=== PATIENT | male | born 1950 | race Caucasian/White ===

== ENCOUNTER → 2017-08-21 | Outpatient (CLI) | payer MEDICARE ==
[~2017-08-21] MED LIST: ASCO-182 PO; ASPI-1471 PO; CHOL200022 PO; CHOL500025 PO; ENAL20TA99 PO; HYDR-2966 PO; HYDR-385 PO; METH-543 PO; PNEU0.5D3 IM; ROSU20TA13 PO
[2017-08-21 09:25] LABS: PLATELET COUNT, AUTOMATED 185 K/uL (150-450)
== END ==
LOC: LAB 09:02
PROVIDERS: ATTEND Emergency Medicine
DX: Z12.5 Encounter for screening for malignant neoplasm of prostate (principal); I10 Essential (primary) hypertension
CPT/HCPCS: 36415; 85025; G0103; 84153